=== PATIENT | male | born 1995 | race Caucasian/White ===

== ENCOUNTER 2020-05-15 14:47 | Emergency (ER) | payer MEDICAID, OTHER ==
[~2020-05-15] VITALS: Ht 175.3 cm; Wt 104.3 kg
--- NOTE | 2020-05-15 14:53 | NUR ---
PATIENT AMBULATED TO BED 4.
--- NOTE | 2020-05-15 14:59 | NUR ---
emt at bedside cleaning open wound.
[2020-05-15] MEDS ORDERED: IBUPROFEN 600 MG TAB PO ONE (15:05)
[2020-05-15] MEDS ORDERED: LIDOCAINE MPF 1% 10 MG/ML VIAL INJ ONE (15:05)
--- NOTE | 2020-05-15 15:15 | NUR ---
hitesh machado administered meds.
--- NOTE | 2020-05-15 15:25 | NUR ---
cristina mcdermott at bedside suturing pt arm wound.
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
--- NOTE | 2020-05-15 16:00 | NUR ---
xray at bedside
[2020-05-15 16:17] VITALS: BP 129/88
--- NOTE | 2020-05-15 16:18 | NUR ---
Patient discharged with v/s stable. Written and verbal after care instructions given and explained. Patient alert, oriented and verbalized understanding of instructions. Ambulatory with steady gait. All questions addressed prior to discharge. ID band removed. Patient advised to follow up with PMD. Rx of Bacitracin 500unit/g and Ibuprofen 600mg given. Patient educated on indication of medication including possible reaction and side effects. Opportunity to ask questions provided and answered.
== END 2020-05-15 16:18 | disposition home or self-care (01) ==
LOC: MED 14:47
DX: S51.812A Laceration without foreign body of left forearm, initial encounter (principal); W01.110A Fall on same level from slipping, tripping and stumbling with subsequent striking against sharp glass, initial encounter; Y93.89 Activity, other specified; Y92.89 Other specified places as the place of occurrence of the external cause; Y99.8 Other external cause status
CPT/HCPCS: 12001; 73090; 90471; 90715; 99283; J2001

== ENCOUNTER 2020-05-23 16:28 | Emergency (ER) | payer OTHER ==
[~2020-05-23] VITALS: Ht 180.3 cm; Wt 104.3 kg
[2020-05-23 16:31] VITALS: BP 154/89
== END 2020-05-23 17:01 | disposition home or self-care (01) ==
LOC: MED 16:28
DX: S51.812D Laceration without foreign body of left forearm, subsequent encounter (principal); Z90.49 Acquired absence of other specified parts of digestive tract; X58.XXXD Exposure to other specified factors, subsequent encounter
CPT/HCPCS: 99281

== ENCOUNTER 2020-10-31 16:51 | Emergency (ER) | payer OTHER ==
[~2020-10-31] VITALS: Ht 182.9 cm; Wt 99.8 kg
[2020-10-31 16:54] VITALS: BP 148/83
--- NOTE | 2020-10-31 16:57 | NUR ---
PT TAKEN TO BED 3.
--- NOTE | 2020-10-31 17:01 | NUR ---
MARIAA AUGUST EVALUATING PATIENT AT BEDSIDE.
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
[2020-10-31] MEDS ORDERED: DEXAMETHASONE 10 MG/ML VIAL IM ONE (17:10)
--- NOTE | 2020-10-31 17:25 | NUR ---
PT RESTING IN BED IN POSITION OF COMFORT. EQUAL CHEST RISE AND FALL. NO DISTRESS NOTED. RESPIRATIONS EVEN/UNLABORED. 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 BED LOCKED IN LOWEST POSITION, SIDE RAILS X 1. ALL PT NEEDS MET AT THIS TIME.
[2020-10-31 17:34] VITALS: BP 120/74
--- NOTE | 2020-10-31 17:34 | NUR ---
Patient discharged with v/s stable. Written and verbal after care instructions given and explained. Patient alert, oriented and verbalized understanding of instructions. Ambulatory with steady gait. All questions addressed prior to discharge. ID band removed. Patient advised to follow up with PMD. Rx of PREDNISONE, AUGMENTIN, NAPROSYN given. Patient educated on indication of medication including possible reaction and side effects. Opportunity to ask questions provided and answered.
== END 2020-10-31 17:34 | disposition home or self-care (01) ==
LOC: MED 16:51
DX: T63.441A Toxic effect of venom of bees, accidental (unintentional), initial encounter (principal); L03.211 Cellulitis of face; Y92.89 Other specified places as the place of occurrence of the external cause
CPT/HCPCS: 96372; 99283; J1100

== ENCOUNTER 2020-12-27 20:39 | Emergency (ER) | payer OTHER ==
[~2020-12-27] VITALS: Ht 182.9 cm; Wt 103.4 kg
[2020-12-27 20:55] VITALS: BP 159/91
--- NOTE | 2020-12-27 22:40 | NUR ---
PT AMBULATED TO BED 12
--- NOTE | 2020-12-27 22:43 | NUR ---
25 Y/O MALE PRESENTS TO THE ED WITH C/O EPIGASTRIC PAIN AND SOB. PT STATES WAKING UP AT 1500 SHORT OF BREATH WITH EPIGASTRIC PAIN. PT STATES PAIN IS 10/10. DENIES N/V/D; SKIN IS PINK/WARM/DRY; AAOX4 WITH EVEN AND STEADY GAIT; LUNGS CLEAR BL; HR EVEN AND REGULAR; PT DENIES ANY FEVER, CP, SOB, OR COUGH AT THIS TIME. VSS; PATIENT POSITIONED FOR COMFORT; HOB ELEVATED; BEDRAILS UP X2; BED DOWN PMH: N/A ALLERGIES: NKA
--- NOTE | 2020-12-27 23:23 | NUR ---
PT PACING AROUND BED DUE TO UNRELIEVED EPIGASTRIC PAIN.
[2020-12-27] MEDS ORDERED: IBUP-2809 PO (23:31)
[2020-12-27] MEDS ORDERED: KETOROLAC 30 MG/ML VIAL IM ONE (23:35)
[2020-12-28 00:10] VITALS: BP 156/83
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
== END 2020-12-28 00:10 | disposition home or self-care (01) ==
LOC: MED 20:39
DX: M94.0 Chondrocostal junction syndrome [Tietze] (principal); Z79.899 Other long term (current) drug therapy
CPT/HCPCS: 71045; 93005; 96372; 99283; J1885

== ENCOUNTER 2021-02-13 22:17 | Emergency (ER) | payer OTHER ==
[~2021-02-13] VITALS: Ht 185.4 cm; Wt 101.2 kg
[~2021-02-13 22:17] MED LIST: IBUP-2809 PO
--- NOTE | 2021-02-13 22:18 | NUR ---
PT MIN ALS. TAKEN TO BED 4
--- NOTE | 2021-02-13 22:19 | NUR ---
Dr. Lopez examining patient.
[2021-02-13] MEDS ORDERED: HYDROcodone/APAP 5/325 MG 1 TAB TAB PO ONE (22:20)
[2021-02-13 22:23] VITALS: BP 181/92
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
--- NOTE | 2021-02-13 22:43 | NUR ---
PT TAKEN TO RADIOLOGY
--- NOTE | 2021-02-13 23:26 | NUR ---
ERMD AT BEDSIDE.
--- NOTE | 2021-02-14 00:10 | NUR ---
Dr. Cook examining patient.
[2021-02-14 00:35] VITALS: BP 148/83
--- NOTE | 2021-02-14 00:35 | NUR ---
Patient discharged with v/s stable. Written and verbal after care instructions given and explained. Patient verbalized understanding. Ambulatory with steady gait. All questions addressed prior to discharge. Advised to follow up with PMD.
== END 2021-02-14 00:35 | disposition home or self-care (01) ==
LOC: MED 22:17
DX: M54.2 Cervicalgia (principal); R07.89 Other chest pain; Z79.899 Other long term (current) drug therapy; V89.2XXA Person injured in unspecified motor-vehicle accident, traffic, initial encounter; Y93.89 Activity, other specified; Y92.89 Other specified places as the place of occurrence of the external cause; Y99.8 Other external cause status
CPT/HCPCS: 70450; 71045; 72125; 90471; 90715; 99285